=== PATIENT | female | born 1990 | race Caucasian/White ===

== ENCOUNTER 2018-05-29 10:23 | Outpatient (REF) | payer BC, SELFPAY ==
[2018-05-30 10:29] LABS: Lyme Ab w Rflx to Lyme Confirm Negative
== END 2018-05-29 10:43 ==
LOC: NCHCN 10:23
PROVIDERS: Visit Provider Internal Medicine
DX: M25.569 Pain in unspecified knee (principal)
CPT/HCPCS: 86618

== ENCOUNTER 2019-05-31 10:41 | Outpatient (CLI) | payer MEDICAID, SELFPAY ==
--- NOTE | 2019-05-31 12:32 | DI.US_ITS ---
EXAM: US OB F/U FACIAL/LVOT/RVOT CLINICAL HISTORY: POSITION OF BABY AND PLACENTA PLACEMENT FOR VAGINAL AFTER TECHNIQUE: Ultrasound performed using standard protocol. COMPARISON: No exams were available for comparison FINDINGS: The fetus was in breech position during the exam. The placenta is anterior and grade 1-2. There is no evidence of placenta previa. The edge of the placenta measures 5 centimeters to the internal os. The amount of amniotic fluid appears visually normal. cardiac activity is demonstrated. IMPRESSION: Breech fetus. Anterior placenta.
== END 2019-05-31 11:01 ==
PROVIDERS: PCP Family Medicine; Visit Provider Midwife
DX: O32.1XX0 Maternal care for breech presentation, not applicable or unspecified (principal); O34.219 Maternal care for unspecified type scar from previous cesarean delivery
CPT/HCPCS: 76815

== ENCOUNTER 2020-08-05 12:49 | Outpatient (REF) | payer MEDICAID, SELFPAY ==
[2020-08-06 15:21] LABS: COVID-19 RT-PCR UVMMC Result Negative (Negative)
== END 2020-08-05 12:50 | disposition home or self-care (01) ==
LOC: NCHCN 12:49
PROVIDERS: PCP Family Medicine; Visit Provider Family Medicine
DX: Z20.822 Contact with and (suspected) exposure to COVID-19 (principal)
CPT/HCPCS: U0003

== ENCOUNTER 2020-08-19 11:15 | Outpatient (REF) | payer MEDICAID, SELFPAY ==
[2020-08-20 14:23] LABS: COVID-19 RT-PCR UVMMC Result Negative (Negative)
== END 2020-08-19 11:16 | disposition home or self-care (01) ==
LOC: NCHCN 11:15
PROVIDERS: PCP Family Medicine; Visit Provider Family Medicine
DX: Z20.822 Contact with and (suspected) exposure to COVID-19 (principal)
CPT/HCPCS: U0003

== ENCOUNTER 2023-04-28 10:24 | Outpatient (REF) | payer MEDICAID, SELFPAY ==
--- NOTE | 2023-04-28 15:15 | PAPFT_PTH ---
PATIENT: Matthew August LOC: [facility]#:[id number] AGE/SX: 32/F ROOM: RE04/28/[address]: Brenna Garcia : 1990 BED: DIS: 04/28/2023 SPEC #: [id number] RECD: 04/29/23 13:01 STATUS: KEON REYES #: [id number] SANDRA: 04/28/23 15:[address]: Brenna Garcia DEPT: [facility] Cytology RECD BY: Erica Cedillo ENTERED: 04/29/23 13:02 SP TYPE: PAPFT OTHR DR: Kalie Smith Tissues: 1 - CX/ENDOCX FOR PAP SMEARS Procedures: PAP THIN PREP/UVM Screening HPV DNA PROBE Comments: [id number]
--- OUTSIDE RECORDS SUMMARY | 2023-04-29 10:26 | XMS_ITS | CCD ---
Author Name Unknown Address [address] [place] [address] [phone] Organization Unknown Address [address] [place] [address] [phone] Care Team Providers Care Range Technician Name Role Phone STEWART HARTMANN MD Attending Physician [phone] Vital Signs Unknown or Not Available. Allergies Allergy Code Allergy Type Reaction Status No Known Drug Allergies 0 No known drug allergies Active Procedures Unknown or Not Available. History of Immunizations Immunization Code Date COVID-19, mRNA, LNP-S, PF, 30 mcg/0.3 mL dose 20 8 11/12/2020 COVID-19, mRNA, LNP-S, PF, 30 mcg/0.3 mL dose 20 8 12/03/2020 Problems Unknown or Not Available. Results CBC W/ DIFFERENTIAL - Collec t Date/Time: 02/10/2021 17:33 Test Name Code Test Result Test Units Test Ref Rang e WBC 6690-2 6.15 th/cmm L=5.00 H=10.00 NEUT % 52.8 % L=40.0 H=80.0 LYMPH % 40.2 % L=10.0 H=50.0 MONO % 82009-0 5.7 % L=2.0 H=12.0 EOS % 0.8 % L=0.0 H=8.0 BASO % 0.3 % L=0.0 H=3.0 IG % 2514-8 0.2 % L=0.0 H=1.1 NRBC % 65599-4 0.0 % L=0.0 H=0.0 NEUT abs count 751-8 3.3 th/cmm L=1.6 H=8. 4 LYMPH abs count 731-0 2.5 th/cmm L=1.5 H=4 .0 MONO abs count 742-7 0.4 th/cmm L=0.2 H=1. 0 EOS abs count 711-2 0.1 th/cmm L=0.0 H=0.5 BASO abs count 704-7 0.0 th/cmm L=0.0 H=0. 2 IG abs count 69156-1 0.0 th/cmm L=0.0 H=0.1 NRBC abs count 58171-2 0.0 mil/cmm L=0.0 H=0. 0 RBC 789-8 4.35 mil/cmm L=3.90 H=5.40 HEMOGLOBIN 718-7 12.7 gm/dL L=12.0 H=16.0 HEMATOCRIT 4544-3 40 % L=37 H=47 MCV 787-2 91 fL L=82 H=92 MCH 785-6 29.2 pg L=27.0 H=31.0 MCHC 786-4 32.0 % L=32.0 H=36.0 RDW-SD 788-0 43.4 fL L=39.0 H=49.0 PLATELET COUNT 777-3 238 th/cmm L=150 H=45 0 URINALYSIS WITH MICRO AND RE FLEX CULTURE - Collect Date/Time: 02/10/2021 17:33 Test Name Code Test Result Test Units Test Ref Rang e COLLECTION MODE: NOT STATED N/A Color 5778-6 YELLOW N/A yellow Appearance 5767-9 CLEAR N/A clear Glucose urine 02798-6 NEGATIVE N/A negative mg /dl Bilirubin 5770-3 NEGATIVE N/A negative Ketones 2514-8 NEGATIVE N/A negative mg/dl Spec gravity 5811-5 >=1.030 N/A 1.003 - 1.03 0 pH urine 2756-5 6.0 N/A 5.0 - 7.0 Protein 13735-1 NEGATIVE N/A negative mg/dl Urobilinogen 81393-7 0.2 N/A <or= 1 EU/dl Nitrite. 5802-4 NEGATIVE N/A negative Blood 5794-3 NEGATIVE N/A negative Leukocytes. NEGATIVE N/A negative WBCs. none N/A 0-5 / hpf RBCs none N/A 0-5 / hpf Epith cells none N/A 0-5 / hpf Crystals none N/A none Bacteria none N/A none Mucus none N/A none Casts none N/A none /lpf Active Medications Unknown or Not Available. Medications Administered During Visit Unknown or Not Available. Encounters Encounter Diagnosis Diagnosis Code Start Date Encounter for preprocedural laboratory examinati on [id number] 02/10/2021 Social History Smoking Status Code Start Date End Date Never smoker [id number] Patient Decision Aids Unknown or Not Available. Discharge Instructions You were admitted to [facility] on 02/10/2021 17:01 with a principal diagnosis of Encounter for preprocedural laboratory examination You had the following tests done:CBC W/ DIFFERENTIALURINALYSIS WITH MICRO AND REFLEX CULTURE You were discharged from [facility] on 02/10/2021 17:01 Should you have any questions prior to discharge, please contact a member of your healthcare team. If you have left the hospital and have any questions, please contact your primary care physician. Chief Complaint and Reason For Visit Unknown or Not Available. Function Status Unknown or Not Available. Plan of Care Unknown or Not Available. Referral/Transition of Care Unknown or Not Available.
--- OUTSIDE RECORDS SUMMARY | 2023-04-29 10:26 | XMS_ITS | CCD ---
Author Name Unknown Address [address] [place] [address] [phone] Organization Unknown Address [address] [place] [address] [phone] Care Team Providers Care Functional Architect Name Role Phone STEWART HARTMANN MD Attending Physician [phone] Vital Signs Vital Sign Value Unit Date/Time Recent/Initial ? BMI (Body Mass Index) 24.53 kg/m^2 02/16/2021 09: 02 Initial VS Weight Measured 125.6 lbs 02/16/2021 09:02 Ini tial VS Height 60 in 02/16/2021 09:02 Initial VS BSA (Body Surface Area) 1.55 m^2 02/16/2021 0 9:02 Initial VS BP Systolic 119 mmHg 02/25/2021 15:26 Initial VS BP Diastolic 83 mmHg 02/25/2021 15:26 Initia l VS Respiratory Rate 17 bpm 02/25/2021 15:26 In itial VS Heart Rate 58 bpm 02/25/2021 15:26 Initial VS O2 % BldC Oximetry 100 % 02/25/2021 15:26 Initial VS Body Temperature 36.4 degrees 02/25/2021 15:26 In itial VS Allergies Allergy Code Allergy Type Reaction Status No Known Drug Allergies 0 No known drug allergies Active Procedures Procedure Code Procedure Type Date Laparoscopy, Surgical; w/Nancy is, Adhesions (Salpingolysis/Ovariolysis) (Sep Proc) 67476 CPT 0 02/25/2021 Anesthesia, Intraperitoneal Proc, Lower Abdomen, w/Laparoscopy; NOS 01066 CPT 02/25/2021 History of Immunizations Immunization Code Date COVID-19, mRNA, LNP-S, PF, 30 mcg/0.3 mL dose 20 8 11/12/2020 COVID-19, mRNA, LNP-S, PF, 30 mcg/0.3 mL dose 20 8 12/03/2020 Problems Unknown or Not Available. Results TEST (URINE) QUALI TATIVE - Collect Date/Time: 02/25/2021 09:40 Test Name Code Test Result Test Units Test Ref Rang e TEST 2106-3 NEGATIVE N/A Active Medications Medications Administered During Visit Medication Dose Units Frequency Route Date/Time of Last Dose LACTATED RINGERS 1000ML IV X1 02/25/2021 11:46 ACETAMINOPHEN INJ SDV: 1000MG/100ML X1 02/25/2021 11:4 6 MIDAZOLAM INJ SDV: 2MG/2ML 2 MG X1 IVP 02/25/2021 11:46 KETOROLAC INJ SDV: 30MG/1ML 30 MG PRN IN PACU X1 IVP 02/25/2021 13:02 OxyCODONE TABLET no apap added: 5mg 5 MG PRN Q4H PO 02/25/2021 14:0 4 Encounters Encounter Diagnosis Diagnosis Code Start Date Encounter for sterilization Z302 06/2020 Social History Smoking Status Code Start Date End Date Never smoker [id number] Patient Decision Aids Unknown or Not Available. Discharge Instructions You were admitted to [facility] on 02/25/2021 09:34 with a principal diagnosis of Encounter for sterilization You had the following procedures done:Laparoscopy, Surgical; w/Lysis, Adhesions (Salpingolysis/Ovariolysis) (Sep Proc)Anesthesia, Intraperitoneal Proc, Lower Abdomen, w/Laparoscopy; NOS You had the following tests done: TEST (URINE) QUALITATIVE You were discharged from [facility] on 02/25/2021 14:30 Should you have any questions prior to discharge, please contact a member of your healthcare team. If you have left the hospital and have any questions, please contact your primary care physician. Chief Complaint and Reason For Visit Chief Complaint Date of Onset LAP TUBAL LIGATION WITH CAUTERY 30MIN OP Function Status Unknown or Not Available. Plan of Care Unknown or Not Available. Referral/Transition of Care Unknown or Not Available.
--- OUTSIDE RECORDS SUMMARY | 2023-04-29 10:26 | XMS_ITS | CCD ---
Author Name Unknown Address [address] [place] [address] [id number] Organization Unknown Address [address] [place] [address] [phone] Care Team Providers Care Physicians Assistant Name Role Phone STEWART HARTMANN MD Attending Physician [phone] Vital Signs Unknown or Not Available. Allergies Allergy Code Allergy Type Reaction Status No Known Drug Allergies 0 No known drug allergies Active Procedures Unknown or Not Available. History of Immunizations Immunization Code Date COVID-19, mRNA, LNP-S, PF, 30 mcg/0.3 mL dose 20 8 11/12/2020 COVID-19, mRNA, LNP-S, PF, 30 mcg/0.3 mL dose 20 8 12/03/2020 Problems Unknown or Not Available. Results Unknown or Not Available. Active Medications Unknown or Not Available. Medications Administered During Visit Unknown or Not Available. Encounters Encounter Diagnosis Diagnosis Code Start Date Encounter for other general counseling and advice on contraception Z3009 01/26/2021 Social History Smoking Status Code Start Date End Date Never smoker [id number] Patient Decision Aids Unknown or Not Available. Discharge Instructions You were admitted to [facility] on 01/26/2021 09:39 with a principal diagnosis of Encounter for other general counseling and advice on contraception You were discharged from [facility] on 01/26/2021 09:39 Should you have any questions prior to [...]
--- OUTSIDE RECORDS SUMMARY | 2023-04-29 10:26 | XMS_ITS | CCD ---
Author Name Unknown Address [address] [place] [address] [phone] Organization Unknown Address [address] [place] [address] [phone] Care Team Providers Care Tank Crewmember Name Role Phone STEWART HARTMANN MD Attending Physician [phone] Vital Signs Unknown or Not Available. [...] Code Start Date End Date Never smoker [id number] Patient Decision Aids Unknown or Not Available. Discharge Instructions You were admitted to on 02/25/2021 12:44 with a principal diagnosis of Encounter for sterilization You were discharged from on 02/25/2021 12:44 Should you have any questions prior to [...]
[2023-04-29 11:59] LABS: TSH (W/Ref FT4) 1.53 uIU/mL (0.36-3.74)
[2023-05-02 10:46] LABS: Hepatitis C Ab w Rflx HCV PCR Negative (Negative)
[2023-05-02 12:05] LABS: HIV-1/2 Ag & Ab Screen Negative (Negative)
[2023-05-02 13:21] LABS: Syphilis Serology (RPR) Negative (Negative)
[2023-05-03 14:44] LABS: Chlamydia Result Negative (Negative); GC Result Negative (Negative)
== END 2023-04-28 10:25 | disposition home or self-care (01) ==
LOC: NCHCN 10:24
PROVIDERS: PCP Family Medicine; Visit Provider Family Medicine
DX: Z12.4 Encounter for screening for malignant neoplasm of cervix (principal); Z11.3 Encounter for screening for infections with a predominantly sexual mode of transmission; Z00.00 Encounter for general adult medical examination without abnormal findings; R13.10 Dysphagia, unspecified; Z11.51 Encounter for screening for human papillomavirus (HPV); Z11.4 Encounter for screening for human immunodeficiency virus [HIV]
CPT/HCPCS: 86803; 87389; 87491; 87591; 88142; 84443; 86592; 87480; 87510; 87624; 87660

== ENCOUNTER 2023-05-06 13:34 | Outpatient (REF) | payer MEDICAID, SELFPAY ==
--- NOTE | 2023-05-06 09:45 | SKI_PTH ---
PATIENT: Matthew August LOC: [facility] U#:[id number] AGE/SX: 33/F ROOM: RE05/06/[address]: Brenna Garcia : 1990 BED: DIS: 05/06/2023 SPEC #: [id number] RECD: 05/06/23 13:52 STATUS: KEON REDanielle #: [id number] SANDRA: 05/06/23 09:[address]: Brenna Garcia DEPT: Surgical Specimen RECD BY: Erica Cedillo ENTERED: 05/06/23 13:52 SP TYPE: LION MCCONNELL DR: Kalie Smith Tissues: 1 - SKIN BIOPSY(SHAVE/PUNCH) Procedures: SKIN LEVEL 4 Comments: [id number]
--- OUTSIDE RECORDS SUMMARY | 2023-05-06 13:37 | XMS_ITS | CCD ---
Author Name Unknown Address [address] [place] [address] [phone] Organization Unknown Address [address] [place] [address] [phone] Care Team Providers Care Machine Mover Name Role Phone STEWART HARTMANN MD Attending Physician [phone] Vital Signs Unknown or Not Available. [...] Code Start Date End Date Never smoker [id number] Patient Decision Aids Unknown or Not Available. Discharge Instructions You were admitted to [facility] on 01/26/2021 09:39 with a principal diagnosis of Encounter for other general counseling and advice on contraception You were discharged from [facility] on 01/26/2021 09:39 Should you have [...]
--- OUTSIDE RECORDS SUMMARY | 2023-05-06 13:37 | XMS_ITS | CCD ---
Author Name Unknown Address [address] [place] [address] [phone] Organization Unknown Address [address] [place] [address] [phone] Care Team Providers Care Plant Anatomy Teacher Name Role Phone STEWART HARTMANN MD Attending Physician [phone] Vital Signs Vital Sign Value Unit [...] Surgical; w/Nancy is, Adhesions (Salpingolysis/Ovariolysis) (Sep Proc) 19679 CPT 0 02/25/2021 Anesthesia, Intraperitoneal Proc, Lower Abdomen, w/Laparoscopy; NOS 69876 CPT 02/25/2021 History of Immunizations Immunization Code [...] Code Start Date End Date Never smoker [id number] Patient Decision Aids Unknown or Not Available. Discharge Instructions You were admitted to [facility] on 02/25/2021 09:34 with a principal diagnosis of Encounter for sterilization You had the following procedures done:Laparoscopy, Surgical; w/Lysis, Adhesions (Salpingolysis/Ovariolysis) (Sep Proc)Anesthesia, Intraperitoneal Proc, Lower Abdomen, w/Laparoscopy; NOS You had the following tests done: TEST (URINE) QUALITATIVE You were discharged from [facility] on 02/25/2021 14:30 Should you have [...]
--- OUTSIDE RECORDS SUMMARY | 2023-05-06 13:37 | XMS_ITS | CCD ---
Author Name Unknown Address [address] [place] [address] [id number] Organization Unknown Address [address] [place] [address] [phone] Care Team Providers Care Alarm Installer Name Role Phone STEWART HARTMANN MD Attending Physician [phone] Vital Signs Unknown or Not Available. [...] Code Start Date End Date Never smoker [id number] Patient Decision Aids Unknown or Not Available. Discharge Instructions You were admitted to [facility] on 02/25/2021 12:44 with a principal diagnosis of Encounter for sterilization You were discharged from [facility] on 02/25/2021 12:44 Should you have any [...]
== END 2023-05-06 13:35 | disposition home or self-care (01) ==
LOC: LBN 13:34
PROVIDERS: PCP Family Medicine; Visit Provider Family Medicine
DX: D23.71 Other benign neoplasm of skin of right lower limb, including hip
CPT/HCPCS: 88305

== ENCOUNTER → 2023-08-12 00:34 | Outpatient (CLI) | payer MEDICAID, SELFPAY ==
--- NOTE | 2023-08-12 | DI.MRI_ITS ---
Exam(s) MR LOWER JOINT LT WO EXAM: MR LOWER JOINT LT WO CLINICAL HISTORY: PAIN LEFT KNEE M25.562. TECHNIQUE: Multiplanar multisequence MRI was performed. COMPARISON: No exams were available for comparison FINDINGS: BONES: There is no fracture or contusion pattern. JOINTS: Articular cartilage is unremarkable. No effusion is present. TENDONS: Extensor mechanism: Unremarkable. Medial retinaculum: Unremarkable. Lateral retinaculum: Unremarkable. Popliteus: Unremarkable. MUSCLES: Unremarkable. MENISCI: The medial meniscus is unremarkable. The lateral meniscus is unremarkable. SOFT TISSUES: Unremarkable. LIGAMENTS: Anterior Cruciate: Unremarkable. Posterior Cruciate: Unremarkable. Medial Collateral:Unremarkable. Lateral Collateral: Unremarkable. OTHER: IMPRESSION: 1. No evidence of a meniscal or ligament tear. 2. No acute abnormality is identified. DATA REPOSITORY:
--- OUTSIDE RECORDS SUMMARY | 2023-08-12 00:36 | XMS_ITS | CCD ---
Author Name Unknown Address [address] [place] [address] [phone] Organization Unknown Address [address] [place] [address] [phone] Care Team Providers Care Director Of Donor Relations Name Role Phone STEWART HARTMANN MD Attending Physician [phone] Vital Signs Unknown or Not Available. [...] Code Start Date End Date Never smoker [id number] Patient Decision Aids Unknown or Not Available. Discharge Instructions You were admitted to [facility] on 02/25/2021 12:44 with a principal diagnosis of Encounter for sterilization You were discharged from [facility] on 02/25/2021 12:44 Should you [...]
--- OUTSIDE RECORDS SUMMARY | 2023-08-12 00:36 | XMS_ITS | CCD ---
Author Name Unknown Address [address] [place] [address] [phone] Organization Unknown Address [address] [place] [address] [phone] Care Team Providers Care Film Loader Name Role Phone STEWART HARTMANN MD Attending Physician [phone] Vital Signs Vital Sign Value Unit [...] Surgical; w/Nancy is, Adhesions (Salpingolysis/Ovariolysis) (Sep Proc) 78073 CPT 0 02/25/2021 Anesthesia, Intraperitoneal Proc, Lower Abdomen, w/Laparoscopy; NOS 82146 CPT 02/25/2021 History of Immunizations Immunization Code [...] Code Start Date End Date Never smoker [id number] Patient Decision Aids Unknown or Not Available. Discharge Instructions You were admitted to [facility] on 02/25/2021 09:34 with a principal diagnosis of Encounter for sterilization You had the following procedures done:Laparoscopy, Surgical; w/Lysis, Adhesions (Salpingolysis/Ovariolysis) (Sep Proc)Anesthesia, Intraperitoneal Proc, Lower Abdomen, w/Laparoscopy; NOS You had the following tests done: TEST (URINE) QUALITATIVE You were discharged from [facility] on 02/25/2021 14:30 Should you have any [...]
--- OUTSIDE RECORDS SUMMARY | 2023-08-12 00:36 | XMS_ITS | CCD ---
Author Name Unknown Address [address] [place] [address] [phone] Organization Unknown Address [address] [place] [address] [phone] Care Team Providers Care Cork Insulator Name Role Phone STEWART HARTMANN MD Attending Physician [phone] Vital Signs Unknown or Not Available. [...] Code Start Date End Date Never smoker [id number] Patient Decision Aids Unknown or Not Available. Discharge Instructions You were admitted to [facility] on 01/26/2021 09:39 with a principal diagnosis of Encounter for other general counseling and advice on contraception You were discharged from [facility] on 01/26/2021 09:39 Should you have any [...]
--- OUTSIDE RECORDS SUMMARY | 2023-08-12 00:36 | XMS_ITS | CCD ---
Author Name Unknown Address [address] [place] [address] [phone] Organization Unknown Address [address] [place] [address] [phone] Care Team Providers Care Glue Drier Operator Name Role Phone STEWART HARTMANN MD Attending Physician [phone] Vital Signs Unknown or Not Available. [...] % 40.2 % L=10.0 H=50.0 MONO % 26030-8 5.7 % L=2.0 H=12.0 EOS % 0.8 % L=0.0 H=8.0 BASO % 0.3 % L=0.0 H=3.0 IG % 2514-8 0.2 % L=0.0 H=1.1 NRBC % 15103-3 0.0 % L=0.0 H=0.0 NEUT abs count 751-8 3.3 th/cmm L=1.6 H=8. 4 LYMPH abs count 731-0 2.5 th/cmm L=1.5 H=4 .0 MONO abs count 742-7 0.4 th/cmm L=0.2 H=1. 0 EOS abs count 711-2 0.1 th/cmm L=0.0 H=0.5 BASO abs count 704-7 0.0 th/cmm L=0.0 H=0. 2 IG abs count 21505-2 0.0 th/cmm L=0.0 H=0.1 NRBC abs count 30184-8 0.0 mil/cmm L=0.0 H=0. 0 RBC 789-8 [...] Appearance 5767-9 CLEAR N/A clear Glucose urine 70757-6 NEGATIVE N/A negative mg /dl Bilirubin 5770-3 NEGATIVE N/A negative Ketones 2514-8 NEGATIVE N/A negative mg/dl Spec gravity 5811-5 >=1.030 N/A 1.003 - 1.03 0 pH urine 2756-5 6.0 N/A 5.0 - 7.0 Protein 30392-2 NEGATIVE N/A negative mg/dl Urobilinogen 60443-4 0.2 N/A <or= 1 EU/dl Nitrite. 5802-4 [...] Date Encounter for preprocedural laboratory examinati on [id number] 02/10/2021 Social History Smoking Status Code Start Date End Date Never smoker [id number] Patient Decision Aids Unknown or Not Available. Discharge Instructions You were admitted to [facility] on 02/10/2021 17:01 with a principal diagnosis of Encounter for preprocedural laboratory examination You had the following tests done:CBC W/ DIFFERENTIALURINALYSIS WITH MICRO AND REFLEX CULTURE You were discharged from [facility] on 02/10/2021 17:01 Should you have any [...]
== END ==
PROVIDERS: PCP Family Medicine; Visit Provider Family Medicine
DX: M25.562 Pain in left knee (principal)
CPT/HCPCS: 73721

== ENCOUNTER 2023-10-20 01:38 | Emergency (ER) | payer MEDICAID, SELFPAY ==
[2023-10-20 01:40] VITALS: BP 150/91; PULSE 74; RESP 16; TEMP 36.8; O2SAT 100
--- NOTE | 2023-10-20 01:45 | DI.RAD_ITS ---
Exam(s) XR ABDOMEN FLAT UPRIGHT EXAM: 2D digital imaging was performed. CLINICAL HISTORY: abdominal pain, h/o constipation. COMPARISON: CR CHEST 2 VIEWS PA,LAT from 01/29/2014 TECHNIQUE: Supine and upright views of the abdomen was performed. Two images were obtained. FINDINGS: LUNG BASES: Clear. BOWEL GAS PATTERN: Nondistended. Bfte-mn-gopvtldz amount of retained stool. FREE AIR: None. CALCIFICATIONS: No radiopaque calcifications. OSSEOUS STRUCTURES: Normal for age. OTHER FINDINGS: Umbilical piercings are present. IMPRESSION: Scih-xl-kwmcepzm amount of retained stool. DATA REPOSITORY: RADIATION DOSE DELIVERED:
[2023-10-20 02:03] LABS: Bilirubin Negative (Negative); Blood Negative (Negative); Clarity Clear (Clear); Glucose Negative (Negative); Ketones Negative (Negative); Leukocyte Esterase Negative (Negative); Nitrite Negative (Negative); Specific Gravity 1.025 (1.005-1.025); Urobilinogen 0.2 mg/dL (Up to 0.2); pH 6.5 (5-8)
--- NOTE | 2023-10-20 02:07 | ED.GENADUL_ITS ---
Discharge Plan Disposition Patient Disposition: Home Condition: Improving Discharge Details Clinical Impression: Nausea, Constipation due to slow transit Primary Care Provider: Brenna Garcia ED Provider: Reggie Brody Home Meds and New Rx's Prescriptions: New ondansetron 4 mg tablet,disintegrating 4 mg PO Q8H PRN (Reason: nausea and vomiting) Qty: 14 0RF polyethylene glycol 3350 [Miralax] 17 gram/dose powder 17 g PO .Nightly Qty: 510 0RF No Action ibuprofen 200 MG tablet 200 mg PO PRN omega-3 fatty acids 1,000 mg capsule 1,000 mg PO DAILY magnesium amino acid chelate 100 mg tablet PO acetaminophen [Tylenol Extra Strength] 500 MG tablet 500 mg PO PRN PRN albuterol sulfate [Ventolin HFA] 90 mcg/actuation HFA aerosol inhaler INHALATION Patient Comments: INHALE TWO PUFFS BY MOUTH EVERY 4 HOURS NEEDED FOR 14 DAYS Discharge Instructions Instructions: Constipation (ED) Additional Instructions: Your plain films show stool moving through your distal and sigmoid colon. Your symptoms tonight were likely entrapped bowel gas behind this stool. You can take 1 Zofran ODT tablet up to every 8 hours as needed for symptoms of nausea. This medication will dissolve under your tongue and does not necessarily need to be swallowed to be effective. Consider taking 17 g of MiraLAX powder, mixed in 8 to 12 ounces of clear liquid, nightly before bed. This medication is not absorbed in your bowel and works as a lubricant and cleaning out agent. The idea is that this will promote morning bowel movements without cramps or pain. You can follow-up with regular primary care doctor for recheck and further management if symptoms or not improving with this care plan. HPI General Date/Time Provider Initiated Documentation: 10/20/23 01:40 . HPI Narrative: The patient is a 33-year-old female, who presents to the emergency department this evening complaining of nausea which has been ongoing for approximately 4 to 5 days and prevented her from sleeping tonight. The patient states that at around 8 PM, she had an episode of twisting and severe left lower quadrant abdominal discomfort which lasted about a minute before resolving. The pain has not returned and the patient does not have any ongoing discomfort in the left lower quadrant at this time. The patient does report that she continues to have nausea, but not with any increased intensity above the last few days. The patient denies any associated urinary symptoms. The patient denies any vaginal bleeding or vaginal discharge. She tells me that her last menstrual cycle was about a week ago and was normal and duration and quantity. The patient has a history of chronic constipation and often has to take some form of laxative or probiotic supplement to have a bowel movement. Related Data Home Medications Medication Instructions Recorded Confirmed acetaminophen 500 mg tablet 500 mg PO PRN PRN 04/05/13 10/20/23 (Tylenol Extra Strength) ibuprofen 200 mg tablet 200 mg PO PRN 04/01/14 10/20/23 magnesium amino acid chelate 100 mg PO 05/05/23 09/07/23 mg tablet omega-3 fatty acids 1,000 mg 1,000 mg PO DAILY 05/05/23 09/07/23 capsule albuterol sulfate 90 mcg/actuation inhalation 10/20/23 aerosol inhaler (Ventolin HFA) ondansetron 4 mg disintegrating 4 mg PO Q8H PRN nausea and 10/20/23 tablet vomiting #14 tabs polyethylene glycol 3350 17 17 g PO .Nightly #510 grams 10/20/23 gram/dose oral powder (Miralax) Previous Rx's Medication Instructions Recorded ondansetron 4 mg disintegrating 4 mg PO Q8H PRN nausea and 10/20/23 tablet vomiting #14 tabs polyethylene glycol 3350 17 17 g PO .Nightly #510 grams 10/20/23 gram/dose oral powder (Miralax) Allergies Allergy/AdvReac Type Severity Reaction Status Date / Time No Known Allergies Allergy Unverified 10/20/23 01:49 General Stated Complaint: Abd Prob JUVE: 3 Exam Const General: cooperative, comfortable and no acute distress Resp Effort & Inspection: normal respiratory effort and able to speak in complete sentences Auscultation: clear to auscultation bilaterally Cardio Rate: regular rate Rhythm: regular rhythm GI Palpation: soft and nontender Auscultation: normal bowel sounds Skin General skin exam: no rashes or lesions noted and dry skin Neuro Cranial Nerves: CN's II-XI intact bilaterally Speech: speech normal Motor: muscle tone normal throughout and strength 5/5 throughout Sensory Exam: no sensory deficits noted Course Vital Signs Vital signs: Vital Signs Temperature 36.8 C 10/20/23 01:40 Pulse 74 10/20/23 01:40 Respiratory Rate 16 10/20/23 01:40 Blood Pressure 150/91 H 10/20/23 01:40 Pulse Oximetry 100 10/20/23 01:40 Temperature 36.8 C 10/20/23 01:40 Temperature Source Oral 10/20/23 01:40 Pulse 74 10/20/23 01:40 Respiratory Rate 16 10/20/23 01:40 Respiratory Effort Normal 10/20/23 01:46 Blood Pressure 150/91 H 10/20/23 01:40 Pulse Oximetry 100 10/20/23 01:40 Oxygen Delivery Method Room Air 10/20/23 01:40 Oxygen Flow Rate 0 10/20/23 01:40 Pain Level 2 10/20/23 01:40 Lab/Test Results Lab/Test Results: Laboratory Tests Range/Units 10/20/23 01:55 Urine Color (Yellow) Yellow Urine Clarity (Clear) Clear Urine pH (5-8) 6.5 Ur Specific [place] (1.005-1.025) 1.025 Urine Protein (Neg-Trace) mg/dL Negative Urine Ketones (Negative) mg/dL Negative Urine Blood (Negative) Negative Urine Nitrite (Negative) Negative Urine Bilirubin (Negative) Negative Urine Urobilinogen (Up to 0.2) mg/dL 0.2 Ur Leukocyte Esterase (Negative) Negative Urine Glucose (Negative) mg/dL Negative POC- Test(urine) Negative Medical Decision Making The patient was seen and examined. Her laboratory workup was negative for any significant metabolic derangement, elevation of her white blood count, or urine infection sources. The patient's plain film abdominal series reveals copious stool in the distal and sigmoid colon which most likely represents the source of her discomfort. The patient most likely had some entrapped bowel gas. Patient was given some Zofran ODT here in the emergency room for nausea. I will likely prescribe Zofran ODT for home use of her nausea and recommend that she consider using MiraLAX nightly for treatment of her chronic constipation. Patient will be discharged back to primary care follow-up for further management if needed. Quality:SDOH Health Related Social Needs: No Data to Display PFSH All Active Problems (Updated 10/20/23 @ 02:27 by Reggie Brody MD) Constipation due to slow transit (Acute) Nausea (Acute) Internal derangement of left knee (Acute) Neoplastic disease (Acute) Irregular menses (Acute) Skin lesion of right upper extremity (Acute) Dysphagia (Acute) Needle phobia (Acute 04/01/14) Medical History GERD (gastroesophageal reflux disease) Surgical History History of wisdom tooth extraction History of D&C History of inguinal hernia repair Family History Mother Essential hypertension Arthritis Grandmother Arthritis Grandfather Heart disease Father Essential hypertension Social History Smoking/Tobacco Use Status: Former Tobacco Use Smoking risk assessment performed?: Yes Drug use: Occasionally
[2023-10-20] MEDS: Ondansetron O.D.T. 4 MG TABEF PO (02:09)
[2023-10-20 02:13] LABS: Abs Immature Grans 0.01 10^3/uL (0.0-0.06); Absolute Basophil Count 0.03 10^3/uL (0.0-0.2); Absolute Eosinophil Count 0.02 10^3/uL (0.0-0.7); Absolute Lymphocyte Count 1.82 10^3/uL (1.2-3.4); Absolute Monocyte Count 0.55 10^3/uL (0.1-0.8); Absolute Neutrophil Count 5.11 10^3/uL (1.2-6.7); Basophils % 0.4; Eosinophils % 0.3; HCT 36.3 % (36.0-46.0); HGB 11.3 g/dL (11.2-15.7); Immature Grans % 0.1; Lymphocytes % 24.1; MCH 27.7 pg (27.0-33.0); MCHC 31.1 % (32.0-36.0); MCV 89 fL (80-95); MPV 10.1 fL (8.0-11.0); Monocytes % 7.3; Neutrophils % 67.8; Platelet Count 242 10^3/uL (130-400); RBC 4.08 10^6/uL (3.93-5.22); RDW 13.2 % (11.7-14.6); RDW-SD 42.9 fL; WBC 7.54 10^3/uL (4.4-10.8)
[2023-10-20 02:23] LABS: Anion Gap 7.2 mmol/L (3-11); BUN 14 mg/dL (7-18); CO2 29.8 mmol/L (21.0-32.0); CREATININE 0.8 mg/dL (0.55-1.02); Calcium 8.9 mg/dL (8.5-10.1); Chloride 101 mmol/L (98-107); Estimated GFR 98.48 (mL/min/1.73m2); Glucose 114 mg/dL (74-106); Potassium 4.1 mmol/L (3.5-5.1); Sodium 138 mmol/L (136-145)
--- NOTE | 2023-10-20 02:54 | DI.VRAD_ITS ---
PROCEDURE INFORMATION: Exam: XR Abdomen Exam date and time: 10/20/2023 2:13 AM Age: 33 years old Clinical indication: Abdominal pain; Other: Lt sided; Additional info: Abdominal pain, h/o constipation TECHNIQUE: Imaging protocol: Radiologic exam of the abdomen. Views: 2 Views. Upright and supine views. COMPARISON: OB US 1ST TRIMESTER TRANSABD*P 12/23/2016 3:00 PM FINDINGS: Lungs: The visualized portions of the lung bases are unremarkable. Gastrointestinal tract: [id number] constipation present. There is a nonspecific bowel gas pattern. No evidence of bowel obstruction. Intraperitoneal space: There is no free intraperitoneal air. Organs: The organs are unremarkable. Bones/joints: The spine, sacroiliac joints, and hip joints show no evidence of fracture or other acute processes. Soft tissues: There are no soft tissue masses or calcifications. Metallic foreign body piercing at the level of the umbilicus. IMPRESSION: 1. No acute abdominal process identfied. 2. [id number] constipation present. Dictated and Authenticated by: Abundio Muller MD. Ordering:JOYCE Paredes MD
== END 2023-10-20 02:38 | disposition home or self-care (01) ==
PROVIDERS: Emergency Provider Emergency Medicine Emergency Medical Services; PCP Family Medicine
DX: R10.32 Left lower quadrant pain (principal); K59.00 Constipation, unspecified; Z87.891 Personal history of nicotine dependence
CPT/HCPCS: 80048; 81025; 99284; 74019; 81003; 85025